=== PATIENT | female | born 1965 | race Caucasian/White ===

== ENCOUNTER 2021-03-26 01:42 | Emergency (ER) | payer OTHER, SELFPAY ==
[2021-03-26 02:15] LABS: Bilirubin Neg (Negative); Blood, Urine Negative (Negative); Clarity Clear (Clear); Glucose, Urine (Dipstick) Normal (Negative); Ketone, Urine Negative (Negative); Leukocyte Negative (Negative); Nitrite Negative (Negative); Protein, Urine (Dipstick) Negative (Neg-Trace); Specific Gravity, Urine 1.005 (1.002-1.036); Urobilinogen Normal mg/dL (Less than 2)
== END 2021-03-26 02:32 | disposition home or self-care (01) ==
LOC: CSHERS 01:42
DX: R39.15 Urgency of urination (principal); R30.0 Dysuria; R35.0 Frequency of micturition
CPT/HCPCS: 36416; 81003; 87086; 99283

== ENCOUNTER 2021-04-17 07:28 | Outpatient (CLI) | payer OTHER | END 2021-04-17 07:29 | disposition home or self-care (01) | LOC: CSHULT 07:28 | PROVIDERS: ATTEND Family Medicine | DX: R33.9 Retention of urine, unspecified (principal); R39.198 Other difficulties with micturition; R93.2 Abnormal findings on diagnostic imaging of liver and biliary tract; Z90.49 Acquired absence of other specified parts of digestive tract | CPT/HCPCS: 76700; 76856 ==

== ENCOUNTER 2023-01-19 17:31 | Emergency (ER) | payer OTHER ==
[2023-01-19 18:04] LABS: Bilirubin Neg (Negative); Blood, Urine 250 (Negative); Clarity Slightly Cloudy (Clear); Glucose, Urine (Dipstick) Normal (Negative); Ketone, Urine Negative (Negative); Leukocyte 500 (Negative); Nitrite Negative (Negative); Protein, Urine (Dipstick) 100 mg/dl (Neg-Trace); Specific Gravity, Urine 1.015 (1.005-1.030); Urobilinogen Normal mg/dL (Less than 2)
[2023-01-19 18:13] LABS: Bacteria/HPF 1+ HPF (None Seen); CAUTI Indications for Culture Dysuria,urgency,freq; RBC/HPF 21-50 HPF (0-3); Squamous Epithelial 0-3 HPF (0-3); WBC/HPF Greater Than 50 HPF (0-3)
[2023-01-19 18:15] LABS: Urine Culture Reflex Yes Yes
== END 2023-01-19 18:38 | disposition home or self-care (01) ==
LOC: CSHERS 17:31
DX: N39.0 Urinary tract infection, site not specified (principal); R10.9 Unspecified abdominal pain
CPT/HCPCS: 81001; 87086; 99283

== ENCOUNTER 2023-01-21 00:06 | Emergency (ER) | payer OTHER ==
[2023-01-21] MEDS ORDERED: diphenhydrAMINE 50 MG/ML VIAL ONE (00:23)
[2023-01-21] MEDS ORDERED: methylPREDNISolone Sod Succ/PF 125 MG/2 ML VIAL ONE (00:23)
== END 2023-01-21 01:59 | disposition home or self-care (01) ==
LOC: CSHERS 00:06
DX: R05.9 Cough, unspecified (principal); T36.1X5A Adverse effect of cephalosporins and other beta-lactam antibiotics, initial encounter
CPT/HCPCS: 71045; 96374; 96375; J1200; J2930

== ENCOUNTER 2023-04-12 18:56 | Emergency (ER) | payer OTHER ==
[2023-04-12] MEDS ORDERED: Ketorolac Tromethamine 30 MG/ML VIAL ONE (20:39)
== END 2023-04-12 20:50 | disposition home or self-care (01) ==
LOC: CSHERS 18:56
DX: S22.42XA Multiple fractures of ribs, left side, initial encounter for closed fracture (principal); W19.XXXA Unspecified fall, initial encounter
CPT/HCPCS: 96372; J1885

== ENCOUNTER 2023-12-12 12:52 | Outpatient (CLI) | payer OTHER | END 2023-12-12 12:53 | disposition home or self-care (01) | LOC: CSHMAMMO 12:52 | PROVIDERS: ATTEND Family Medicine | DX: Z12.31 Encounter for screening mammogram for malignant neoplasm of breast (principal); N63.10 Unspecified lump in the right breast, unspecified quadrant | CPT/HCPCS: 77063; 77067 ==

== ENCOUNTER 2025-02-28 08:56 | Outpatient (CLI) | payer OTHER | END 2025-02-28 08:57 | disposition home or self-care (01) | LOC: CSHULT 08:56 | PROVIDERS: ATTEND Family Medicine | DX: N83.202 Unspecified ovarian cyst, left side (principal); D25.9 Leiomyoma of uterus, unspecified | CPT/HCPCS: 76856 ==

== ENCOUNTER 2025-03-07 21:10 | Emergency (ER) | payer OTHER ==
[2025-03-07] MEDS ORDERED: diphenhydrAMINE 25 MG CAP ONE (21:54)
[2025-03-07] MEDS ORDERED: Famotidine 20 MG TAB ONE (21:55)
== END 2025-03-07 22:13 | disposition home or self-care (01) ==
LOC: CSHERS 21:10
DX: T41.3X1A Poisoning by local anesthetics, accidental (unintentional), initial encounter (principal); E11.9 Type 2 diabetes mellitus without complications
CPT/HCPCS: 93005; 93010; 99283